=== PATIENT | male | born 1955 | race Caucasian/White ===

== ENCOUNTER 2022-10-02 10:33 | Emergency (ER) | payer MEDICARE, MEDICAID ==
[~2022-10-02] VITALS: Ht 160 cm; Wt 67.0 kg
[2022-10-02 10:38] VITALS: BP 163/100
[2022-10-02] MEDS ORDERED: ACETAMINOPHEN 325MG TABLET PO STA (10:45)
[2022-10-02] MEDS ORDERED: LIDOCAINE 5% PATCH TOP SCH (10:45)
[2022-10-02 12:25] LABS: BASOPHILS % 0.2 % (0.0-2.0); EOSINOPHILS % 0.6 % (0.0-5.0); HEMATOCRIT. 29.9 % (42.0-52.0); LYMPHOCYTES % 17.2 % (20.0-50.0); MEAN CORPUSCULAR HEMOGLOBIN 32.5 pg (28.0-32.0); MEAN CORPUSCULAR VOLUME 96.8 fL (80.0-94.0); MEAN PLATELET VOLUME 8.2 fl (7.4-10.4); MONOCYTES % 6.3 % (2.0-8.0); NEUTROPHILS % 75.7 % (40.0-76.0); PLATELET 252 x1000/uL (130-400); RED BLOOD CELL COUNT 3.09 mill/uL (4.7-6.1)
[2022-10-02 12:39] LABS: PROTHROMBIN TIME 10.4 sec (9.6-11.0)
[2022-10-02 12:40] LABS: CHLORIDE 108 mEq/L (98-107)
[2022-10-02 12:49] LABS: ETHANOL BLOOD < 10 mg/dL
[2022-10-02 17:08] LABS: CLARITY URINE CLOUDY (CLEAR); COLOR URINE YELLOW (YELLOW); KETONES URINE TRACE (NEGATIVE); LEUKOCYTE ESTERASE URINE TRACE (NEGATIVE); NITRITE URINE NEGATIVE (NEGATIVE); OCCULT BLOOD URINE TRACE (NEGATIVE); PH URINE 5.5 (4.5-8.0); PROTEIN URINE 4+ (NEGATIVE); SPECIFIC GRAVITY URINE 1.023 (1.005-1.030); UROBILINOGEN URINE 0.2 E.U./dL (0.2-1.0)
== END 2022-10-02 17:49 | disposition home or self-care (01) ==
LOC: ER 10:33
DX: I12.9 Hypertensive chronic kidney disease with stage 1 through stage 4 chronic kidney disease, or unspecified chronic kidney disease (principal); E11.22 Type 2 diabetes mellitus with diabetic chronic kidney disease; N18.9 Chronic kidney disease, unspecified
CPT/HCPCS: 36415; 71045; 80053; 80320; 81003; 84484; 85025; 99284; G0480

== ENCOUNTER 2022-10-29 13:24 | Emergency (ER) | payer OTHER, MEDICAID ==
[~2022-10-29] VITALS: Ht 170.2 cm; Wt 68.0 kg
[2022-10-29 13:31] VITALS: BP 193/90
== END 2022-10-29 17:05 | disposition home or self-care (01) ==
LOC: ER 13:24
DX: G89.21 Chronic pain due to trauma (principal); M54.2 Cervicalgia; Z87.828 Personal history of other (healed) physical injury and trauma; I10 Essential (primary) hypertension; E11.9 Type 2 diabetes mellitus without complications; Z85.9 Personal history of malignant neoplasm, unspecified; F10.20 Alcohol dependence, uncomplicated; Y90.9 Presence of alcohol in blood, level not specified
CPT/HCPCS: 99283